=== PATIENT | male | born 1960 | race Caucasian/White ===

== ENCOUNTER 2021-12-06 08:11 | Outpatient (CLI) | payer OTHER, SELFPAY ==
--- NOTE | ~2021-12-06 | US_ITS ---
EXAMINATION: US art doppler w dipak KELLEY DATE: 12/06/2021 09:11 INDICATION: Peripheral vascular disease TECHNIQUE: Segmental pressures and plethysmographic and Doppler waveforms of the brachial and lower e xtremity arteries were obtained. COMPARISON: None. FINDINGS: Right and left brachial artery pressures of 123 mm Hg and 137 mm Hg, respectively, are concordant (no rmal difference <= 30 mmHg). The right high thigh pressure index is 1.42 (normal > 1.2). The artery a t the high left thigh was unable to be occluded. The right ankle-brachial index (ARTUR) is 0.51 (normal >= 0.9-1) which could be underestimated as it is based only upon the pressure in the right posterior tibial artery. A pulse was identified at the rig ht dorsalis pedis artery but was unable to be maintained long enough to establish a pressure due to p atient involuntary movements. The right great toe-brachial index (TBI) is 0.32 (normal >= 0.6-0.8). T he right lower extremity segmental pressure gradients are increased between the right [id number]-[id number]-wybn popliteal artery and both the high right thigh as well as the contralateral left [id number] popli teal artery. (normal gradients <= 20-30 mmHg between adjacent levels on the same leg or the same leve ls on the two legs). There is also an increased gradient between the right posterior tibial artery an d the ndtot-lsy-joec popliteal artery as well as the arteries at the contralateral left ankle. Arter ial waveforms are biphasic with brisk systolic upstrokes throughout the arteries of the right lower l imb. The left ARTUR is 1.23. The left TBI is 0.61. The left lower extremity segmental pressure gradients are within normal limits. Arterial waveforms are triphasic at the left superficial femoral artery and bi phasic in the remaining arteries of the left lower limb with brisk systolic upstrokes throughout. IMPRESSION: 1. Arterial occlusive disease to the right lower limb with moderately decreased right ARTUR and TBI. 2. No significant arterial occlusive disease to the left lower limb with normal left ARTUR and borderli ne normal left TBI. Reviewed, dictated and finalized at location A. IMPRESSION: 1. Arterial occlusive disease to the right lower limb with moderately decreased right ARTUR and TBI. 2. No significant arterial occlusive disease to the left lower limb with normal left ARTUR and borderline normal left TBI.
== END 2021-12-06 08:12 | disposition home or self-care (01) ==
LOC: ANHIMG 08:12
PROVIDERS: Visit Provider Psychiatry & Neurology Neurology
DX: I73.9 Peripheral vascular disease, unspecified (principal); I77.9 Disorder of arteries and arterioles, unspecified
CPT/HCPCS: 93923